=== PATIENT | male | born 1980 | race Caucasian/White ===

== ENCOUNTER 2018-12-19 18:19 | Emergency (ER) | payer MEDICAID ==
[2018-12-19] MEDS ORDERED: EPINEPHrine HCL 1 MG/10 ML SYRG IV ONE (18:20)
[2018-12-19] MEDS ORDERED: SODIUM BICARBONATE INFANT SYR 10 ML SYRG IV ONE (18:20)
[2018-12-19] MEDS ORDERED: CALCIUM CHLOR(10%) 100MG/ML 10ML SYRINGE IV ONE (18:20)
[2018-12-19 18:33] VITALS: BP 0/0
== END 2018-12-19 21:12 | disposition expired ==
LOC: EDBD 18:19 → ER 18:19
DX: I46.9 Cardiac arrest, cause unspecified (principal); T40.1X1A Poisoning by heroin, accidental (unintentional), initial encounter; F41.9 Anxiety disorder, unspecified; F32.9 Major depressive disorder, single episode, unspecified; Y92.89 Other specified places as the place of occurrence of the external cause
CPT/HCPCS: 92950; 99285; J0171